=== PATIENT | male | born 1935 | race Caucasian/White ===

== ENCOUNTER 2017-12-09 07:02 | Day surgery (SDC) | payer MEDICARE, SELFPAY ==
[2017-12-08 14:11] VITALS: BMI 27.9
[2017-12-09 07:24] VITALS: BP 104/62; PULSE 66; RESP 18; TEMP 36.2; O2SAT 100
--- NOTE | 2017-12-09 08:13 | P.PN_ITS ---
[facility] Anesthesia Checklist - Patient Identification Patient Identification: Arm Band, Verbal (Name & ) - Structural Data Admitted From: Home Planned Operative Procedure/s: colonoscopy Consent for Planned Operative Procedure(s) Verified: Yes Verified Documents: Surgical Consent - NPO Status Verified Time NPO: 00:00 - Chart Verification Results Verified: CBC, BMP - Additional verifications Patient : No Anesthesia Reactions: No Hx Blood Transfusions: No Blood Transfusion Reaction: No Cephalosporin Allergy: No Previous Colonoscopy: Yes - Cardiovascular Assessment Pulse Strength: Baseline Pulse Rhythm: Irregular Peripheral Edema: No - Airway Assessment C-Spine Mobility Assessed: Yes TMJ Mobility Assessed: Yes Dentition: Good Dentition - Neurological Assessment Level of Consciousness: Awake, Alert, Appropriate Hx Seizures: No Numbness or tingling in extremities: No - Genitourinary Assessment 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 - Anesthesia Plan Anesthesia Risk discussed: Yes ASA Class: III Anesthesia Type: MAC [facility] Anesthesia HX I have reviewed the patient's past medical history: Yes Medical History: Reports:: Atrial Fibrillation, Coronary Artery Disease, Gastroesophageal Reflux Disease(GERD), Hyperlipidemia, Hypertension Denies:: Diabetes Mellitus Type 1, Diabetes Mellitus Type 2, Internal Pacemaker, Lung Disease, Seizures Other Medical History: Reports: Arthritis Laterality Cases: Bilateral: Other Other Surgeries: Yes: Colonoscopy, Colon Resection, Coronary Stent (STENTS X 3) . No: Pacemaker *Family Hx:: Heart Attack
[2017-12-09 08:17] VITALS: O2SAT 97
--- NOTE | 2017-12-09 08:54 | HMH.SCOPE ---
- Procedure: Date: 12/09/17 Procedure Performed:: Colonoscopy with polypectomies Indications:: Patient is an 81-year-old white male referred by Dr. Daniel Fagan. He is somewhat of a poor historian. He was referred for rectal polyp . Patient states that his been present for a while . He has had some minor painless rebleeding. He is on blood thinners. He was undergoing routine prostate examination and was noted to have a palpable lesion. Upon review of the record the patient did have colon resection for benign disease. Last colonoscopy was [address] Cheikh north?krissy and he recommended 5 year follow-up colonoscopy. On examination in the office it appears that this is likely a thrombosed internal hemorrhoid. However, due to his prior history and due to uncertainty plan was made for colonoscopy for confirmation and to rule out neoplasm. Performing Provider:: Dixon Umana MD Referring Provider:: Daniel Fagan MD Sedation:: Propofol Procedure:: Consent was obtained and patient was taken to same-day surgery endoscopy procedure room. He was positioned in a lateral position. Digital examination was performed which revealed right lateral palpable lesion consistent with probable thrombosed hemorrhoid. Variable stiffness Olympus colonoscope was inserted via the anus. Retroflexion was performed immediately which revealed what appeared to be prolapsing thrombosed hemorrhoid which is noninflamed. Colonoscope was able to be advanced to the cecum without significant difficulty. Colonoscope was withdrawn through the colon. He did have several diminutive tiny polyps counter. These were quite small and removed with cold biopsy forceps. He did have somewhat of a larger sessile lesion at the hepatic flexure region and this was partially amputated with cold snare and then removed in its entirety with cold biopsy forceps. Within the sigmoid colon he had some [place] diverticuli. Colonoscope was withdrawn. Findings:: Diverticulosis Internal hemorrhoids Diminutive polyp Recommendations:: I will plan to treat with steroid suppositories. Likely plan for repeat colonoscopy in 5 years. Complications:: None Estimated blood obtained (mL): 2
[2017-12-09 08:57] VITALS: BP 79/55; BP 92/53; PULSE 69; PULSE 75; RESP 16; RESP 18; TEMP 36.6; O2SAT 94; O2SAT 95
[2017-12-09 09:17] VITALS: BP 99/79; PULSE 71; RESP 18; O2SAT 94
[2017-12-09 09:27] VITALS: BP 108/74; PULSE 77; RESP 18; O2SAT 95
[2017-12-09 09:37] VITALS: BP 110/70; PULSE 69; RESP 18; O2SAT 95
== END 2017-12-09 09:37 | disposition home or self-care (01) ==
LOC: OUTP 07:04
PROVIDERS: PCP Family Medicine; Visit Provider Surgery
PROC: 0DJD8ZZ Inspection of Lower Intestinal Tract, Via Natural or Artificial Opening Endoscopic (ICD-10-PCS; principal; 2017-12-09 07:30)
DX: K64.8 Other hemorrhoids (principal); K57.30 Diverticulosis of large intestine without perforation or abscess without bleeding; K63.5 Polyp of colon; Z87.19 Personal history of other diseases of the digestive system
CPT/HCPCS: 45380; 45385; 88305

== ENCOUNTER → 2018-03-10 12:42 | Outpatient (CLI) | payer MEDICARE, SELFPAY ==
[2018-03-10 14:25] LABS: Free T4 (Free Thyroxine) 0.91 ng/dl (0.76-1.46); Thyroid Stimulating Hormone 2.76 uIU/ml (0.358-3.740)
== END ==
PROVIDERS: Visit Provider Otolaryngology
DX: E03.9 Hypothyroidism, unspecified (principal)
CPT/HCPCS: 36415; 84439; 84443

== ENCOUNTER → 2018-08-20 11:50 | Outpatient (REF) | payer MEDICARE, SELFPAY ==
[2018-08-20 13:15] LABS: Erythrocyte Sedimentation Rate 22 mm/hr (0-20)
[2018-08-20 13:51] LABS: C-Reactive Protein 0.8 mg/L (0.0-0.9)
[2018-08-22 11:52] LABS: Peripheral Smear Review Scanned Result
== END ==
LOC: LAB 11:50
PROVIDERS: Visit Provider Emergency Medicine
DX: D72.829 Elevated white blood cell count, unspecified (principal)
CPT/HCPCS: 85060; 85651; 86140

== ENCOUNTER → 2019-02-18 08:46 | Outpatient (CLI) | payer MEDICARE, SELFPAY ==
[2019-02-18 09:44] LABS: Basophils # 0.1 K/mm3 (0-0.2); Basophils % 0.8 % (0.1-2.0); Eosinophils # 0.2 K/mm3 (0.0-0.4); Hematocrit 43.3 % (42.0-52.0); Hemoglobin 14.4 g/dL (14.1-18.0); Lymphocytes # 11.9 K/mm3 (0.7-4.5); Mean Corpuscular HGB Conc 33.4 g/dL (31.8-35.4); Mean Corpuscular Hemoglobin 30.2 pg (27.0-31.2); Mean Corpuscular Volume 90.3 fl (80-94); Mean Platelet Volume 7.3 fl (7.4-10.4); Monocytes # 0.3 K/mm3 (0.1-1.0); Monocytes % 1.8 % (1.7-9.3); Neutrophils % 24.4 % (37.0-80.0); Platelet Count 229 K/mm3 (142-424); Red Blood Count 4.79 M/mm3 (4.60-6.20); Red Cell Distribution Width 14.6 % (11.5-17.5); White Blood Count 16.5 K/mm3 (4.8-10.8)
[2019-02-18 09:45] LABS: MANUAL DIFFERENTIAL MANUAL DIFFERENTIAL (MANUAL DIFF)
[2019-02-18 12:22] LABS: Eosinophils % 2 % (0-3); Lymphocytes % 75 % (10-50); Monocytes % 1 % (2-9); Neutrophils % 21 % (42-76); Platelet Estimate Normal; Total Cells Counted 100
[2019-02-18 12:27] LABS: Alanine Aminotransferase 27 U/L (12-78); Albumin Level 4.1 gm/dL (3.4-5.0); Albumin/Globulin Ratio 1.4 (1.1-1.8); Alkaline Phosphatase 96 U/L (46-116); Anion Gap 17.4 mEq/L (5-15); Aspartate Amino Transferase 15 U/L (15-37); Bilirubin,Total 0.6 mg/dL (0.2-1.0); Blood Urea Nitrogen 25 mg/dL (7-18); Calcium 9.1 mg/dL (8.5-10.1); Carbon Dioxide 25 mmol/L (21.0-32.0); Chloride 103 mmol/L (98-107); Estimated Glomerular Filt Rate 45 ml/min (>60); GFR (African American) 54 ML/MIN (>60); Glucose 150 mg/dL (74-106); Potassium 4.4 mmoL/L (3.5-5.1); Sodium 141 mmol/L (136-145); Total Protein,Serum 7.1 gm/dL (6.4-8.2)
== END ==
PROVIDERS: Visit Provider Internal Medicine Medical Oncology
DX: D64.9 Anemia, unspecified (principal)
CPT/HCPCS: 36415; 80053; 85007; 85025

== ENCOUNTER → 2020-06-06 10:49 | Outpatient (CLI) | payer MEDICARE, SELFPAY ==
--- NOTE | 2020-06-06 10:50 | CA_ITS ---
APPROVED REPORT EXAM: Comprehensive 2D, Doppler, and color-flow Echocardiogram Electronic Test Technician: Kiersten Palacios CRT Ht: 5 ft 10 in Wt: 196lbs BSA: 2.07 BP: 154/71 mmHg Indications: Chest Pain, Shortness of Breath, Atrial Fibrillation, CAD 2D Dimensions LVOT 2.07 cm (M/F) 1.5-2.5 M-Mode Dimensions RVDd 3.53 cm (0.9-2.6) LVDd 4.49 cm (3.5-5.7) LVDs 2.95 cm (3.5-5.7) IVSd 2.12 cm (0.6-1.1) PWd 1.21 cm (0.6-1.1) EF (Teich) 63.50% FS 34.30% EDV (Teich) 92.00 mL ESV (Teich) 33.60 mL LV Diastology E/A Ratio 3.24 Mitral Valve MV A Velocity 28.00 (40-130 cm/s) Left Ventricle Left atrium is moderately enlarged, left ventricle is normal size, mild concentric left ventricular hypertrophy, visually estimated ejection fraction 55% with no regional wall motion abnormality, diastolic parameters are inconclusive. Right Ventricle Right atrium and right ventricle mildly enlarged with normal contractility. Aortic Valve Aortic valve is minimally thickened and fibrosed, there is no aortic stenosis, there is mild aortic insufficiency. Mitral Valve Mitral valve leaflets are minimally thickened, there is no mitral stenosis, there is mild mitral regurgitation. Tricuspid Valve Tricuspid valve is minimally thickened, there is mild tricuspid regurgitation, tricuspid regurgitation jet velocity is inadequate for calculation of the right ventricular systolic pressure. Pulmonic Valve Pulmonic valve is poorly visualized. Great Vessels Aortic root is normal size. Pericardium No significant pericardial effusion noted. Conclusion 1. Biatrial enlargement, normal left ventricular size, mild concentric left ventricular hypertrophy, visually estimated ejection fraction 55% with no regional wall motion abnormality, diastolic parameters are inconclusive. 2. Thickened and calcified aortic valve without aortic stenosis, there is mild aortic insufficiency. 3. Mildly enlarged right ventricle with normal contractility. 4. Mild mitral and tricuspid regurgitation. 5. No significant pericardial effusion noted. Electronically signed by : Mikhail Gilbert, 06/06/2020 19:05:39
== END ==
PROVIDERS: PCP Family Medicine; Visit Provider Urology
DX: R06.00 Dyspnea, unspecified (principal)
CPT/HCPCS: 93306

== ENCOUNTER → 2021-06-04 07:53 | Outpatient (CLI) | payer MEDICARE, SELFPAY | PROVIDERS: Visit Provider Surgery | DX: Z01.812 Encounter for preprocedural laboratory examination (principal); Z20.822 Contact with and (suspected) exposure to COVID-19; Z13.810 Encounter for screening for upper gastrointestinal disorder; Z12.11 Encounter for screening for malignant neoplasm of colon | CPT/HCPCS: U0003 ==

== ENCOUNTER 2021-06-06 10:31 | Day surgery (SDC) | payer MEDICARE, SELFPAY ==
[2021-05-30 12:25] VITALS: BMI 27.8
--- NOTE | 2021-06-06 10:39 | HMH.SCOPE ---
- Procedure: Date: 06/06/21 Patient Date of :: 1935 Procedure Performed:: Esophagogastroduodenoscopy with biopsies Colonoscopy with biopsies Indications:: Patient is an 85-year-old male. He recently presented to the office with concerns about his bowels. His primary care provider is Dr. Daniel Fagan. Patient had a colon resection about 20 years ago for benign disease, diverticulitis. He had a colonoscopy by Dr. Cheikh Villanueva about 8 years ago and had a tubular adenoma removed. I had seen him and performed colonoscopy on 12/09/2017. He had 7 tubular adenomas. I recommended a 3-year follow-up colonoscopy. He now describes symptoms of loose stools and diarrhea. This is actually been present for quite some time but has been progressive. He often has nocturnal diarrhea and smaller caliber stools. He has postprandial diarrhea. He asked if there is a medication which could help him and he also asks about irritable bowel syndrome. He had asked about doing an upper endoscopy as well as colonoscopy since he had diarrhea occurring after eating. I had informed him that upper endoscopy would likely be low yield for this type of symptoms. The options were discussed with the patient and plan was made to proceed with colonoscopy. However, shortly thereafter, he had reported back to the office later asking about performance of upper endoscopy again. Plan was made to perform upper endoscopy and colonoscopy due to history of polyps and postprandial diarrhea with change in bowel habits. Performing Provider:: Dixon Umana MD Referring Provider:: Daniel Fagan MD Sedation:: MAC sedation Procedure:: Patient was taken to endoscopy procedure room. He was positioned in lateral decubitus position. Adequate intravenous sedation was achieved. Attention was first turned upper endoscopy. Olympus endoscope was inserted via the oropharynx. Esophagus was cannulated. It was advanced through the esophagus. Esophagus appeared normal. Gastroesophageal junction was encountered at approximately 40 cm from the incisors. Stomach was cannulated and insufflated. Visualization was somewhat difficult but appeared unremarkable. Pylorus was traversed. Duodenum appeared unremarkable. Biopsy was obtained. Gastric biopsy was obtained. Stomach was desufflated and the endoscope was withdrawn. Next attention was turned to colonoscopy. Digital examination was performed which revealed diminished sphincter tone. Variable stiffness Olympus colonoscope was inserted via the anus. With some minor difficulty due to significant redundancy and floppiness of the sigmoid colon it was ultimately advanced to the right colon. Throughout the colon there was some particulate liquid stool and vegetable matter. However, within the cecum there was a very large amount of undigested plant matter. Prolonged irrigation and suctioning was performed however adequate visualization of the cecum was not able to be achieved. Colonoscope was slowly withdrawn through the colon. Several biopsies were obtained differentiating right and left colon. These were sent as random colon biopsies. In the sigmoid colon there were multiple large mouth diverticuli. The distal sigmoid at the rectosigmoid region there appeared to be some minor melanosis coli. Biopsies were obtained. Retroflexion within the rectum revealed prolapsing internal hemorrhoids. Colonoscope was withdrawn. Findings:: Limited upper endoscopy appeared unremarkable. Biopsies gastric and duodenum performed Poor colonic preparation, particularly right colon with large amount of undigested plant matter Sigmoid diverticulosis Possible rectosigmoid melanosis coli Prolapsing internal hemorrhoids Recommendations:: Follow-up on the biopsies and treat appropriately. Bowel issues may be dietary/functional/medical. Due to the incomplete assessment of the colon may consider repeat colonoscopy within 1 year with more aggressive bow
[2021-06-06 10:48] VITALS: BP 172/110; PULSE 66; RESP 18; TEMP 36.5; O2SAT 97
[2021-06-06 11:08] VITALS: O2SAT 100
--- NOTE | 2021-06-06 11:16 | HMH.ANESCL ---
[facility] Anesthesia Checklist - Patient Identification Patient Identification: Arm Band - Structural Data Admitted From: Home Planned Operative Procedure/s: egd/colonoscopy Consent for Planned Operative Procedure(s) Verified: Yes Verified Documents: Surgical Consent, History and Physical - NPO Status Verified Time NPO: 00:00 - Additional verifications Anesthesia Reactions: No Hx Blood Transfusions: No Blood Transfusion Reaction: No - Airway Assessment C-Spine Mobility Assessed: Yes (mp2) TMJ Mobility Assessed: Yes Dentition: Good Dentition - Neurological Assessment Level of Consciousness: Awake, Alert - Anesthesia Plan Anesthesia Risk discussed: Yes Anesthesia Plan: Verified ASA Class: III Anesthesia Type: MAC [facility] History I have reviewed the patient's past medical history: Yes Medical History: Reports:: Atrial Fibrillation, Cancer (skin), Coronary Artery Disease, Gastroesophageal Reflux Disease(GERD), Hyperlipidemia, Hypertension Denies:: Diabetes Mellitus Type 1, Diabetes Mellitus Type 2, Internal Pacemaker, Lung Disease, MRSA, Seizures *Have you ever received a pneumonia vaccine?: Yes *Have you received a flu vaccine this season?: Yes Other Medical History: Reports: Arthritis, Hypothyroidism. Denies: Blood Transfusion Reaction Anesthesia experience/problems:: nac Laterality Cases: Bilateral: Other Other Surgeries: Yes: Colonoscopy, Colon Resection, Coronary Stent (STENTS X 3), Other (LHC, Cholecystectomy, Sx repair of stomach). No: Pacemaker Amputation: No Fractures: No - *Social History Last grade of school completed: Advanced degree Smoking Status: Never smoker Alcohol Intake: current Alcohol Intake Frequency:: a few times a month Substance Use Type: denies use *Occupational Status:: retired Housing: house Household Members: spouse *Travel in the last 8 weeks: None Family Hx:: Heart Attack
[2021-06-06 12:00] VITALS: BP 80/42; PULSE 51; RESP 18; TEMP 36.1; O2SAT 95
[2021-06-06 12:11] VITALS: BP 90/54; PULSE 58; RESP 18; O2SAT 94
[2021-06-06 12:21] VITALS: BP 109/53; PULSE 41; RESP 18; O2SAT 97
[2021-06-06 12:31] VITALS: BP 116/71; PULSE 48; RESP 18; O2SAT 100
== END 2021-06-06 12:34 | disposition home or self-care (01) ==
LOC: OUTP 10:32
PROVIDERS: PCP Family Medicine; Visit Provider Surgery
PROC: 0DJ08ZZ Inspection of Upper Intestinal Tract, Via Natural or Artificial Opening Endoscopic (ICD-10-PCS; CPT 43235; principal; 2021-06-06 11:30)
DX: K57.30 Diverticulosis of large intestine without perforation or abscess without bleeding; K64.1 Second degree hemorrhoids; K56.2 Volvulus; K63.89 Other specified diseases of intestine; Z90.49 Acquired absence of other specified parts of digestive tract; Z86.010 Personal history of colon polyps; R19.7 Diarrhea, unspecified; R19.4 Change in bowel habit; R19.5 Other fecal abnormalities; K21.9 Gastro-esophageal reflux disease without esophagitis; E78.5 Hyperlipidemia, unspecified; I10 Essential (primary) hypertension
CPT/HCPCS: 43239; 45380; 88305

== ENCOUNTER → 2022-05-08 06:12 | Outpatient (CLI) | payer MEDICARE, SELFPAY ==
--- NOTE | 2022-05-08 06:15 | CA_ITS ---
APPROVED REPORT Exam: Pharmacologic Technologist: Lisa Otoole, Ht: 5 ft 10 in Wt: 187 lbs BSA: 2.03 m2 HR: 47 bpm BP: 174/74 mmHg Rhythm: AFIB, SLOW V RESPONSE, PVCS VSABERRANTLY CONDUCTED BEATS, RIGHTWARD AXIS Indications: CP Medical History Medical History: HTN, Hyperlipidemia Medications: Amlodipine,,,,, Pantoprazole,,,,, Atorvastatin,,,,, TAMSULOSIN,,,,, Finasteride,,,,, BisOPROLOL/HCTZ,,,,, RIvaROXABAN,,,,, Allergies: SULFA Cardiac Risk Factors: HTN, Hyperlipidemia Stress Test Details Test: LEXISCAN HR Resting HR: 50 bpm Max Heart Rate (APMHR): 133.418143 bpm Max HR Achieved: 76 bpm Target HR (85% APMHR): 113.971012 bpm % of APMHR: 57.14 Recovery HR: 67 bpm BP Resting BP: 174/74 mmHg Max BP: 174/74 mmHg Recovery BP: 165.0/70.0 mmHg ECG Resting ECG: AFIB, SLOW V RESPONSE, PVCS VSABERRANTLY CONDUCTED BEATS, RIGHTWARD AXIS Clinical Exercise duration: 04:01 min Highest Stage Achieved: Exercise capacity: 1.0 METs Stress ECG Conclusion PT HAD MILD MALAISE. NO CP. MODERATELY FREQ PVCS VS ABERRANTLY CONDUCTED BEATS. NO SIGNIFICANT CHANGES. UNREMARKABLE LEXISCAN STRESS. MYOVIEW IMAGES REPORTED SEPARATELY. Test Summary . . . . . Stop exercise at 04:01 . . . . Electronically signed by : Mikhail Gilbert MD 05/08/2022 14:31:36
--- NOTE | 2022-05-08 06:15 | NM_ITS ---
APPROVED REPORT Exam: Nuclear Stress Test Indication: Chest pain, CAD, HTN, High cholesterol, Family history Patient Location: Outpatient Stress Tech: Lisa Otoole [place] Tech:Elsa Schmidt, ARRT, RT (R)(N) Ht: 5 ft 10 in Wt: 190 lbs HR: 50 bpm BP: 174/74 mmHg BSA: 2.04 m2 TID: 1.13 BMI: 27.2 History: Chest pain, CAD, HTN, High cholesterol, Family history Procedure: Patient received a 0.4 mg of intravenous Lexiscan, resting heart rate 50 bpm, resting blood pressure 174/74 mmHg, with Lexiscan maximum heart rate achived was 76 bpm which is Less than 85 % of the maximum predicted heart rate and blood pressure was 174/74 mmHg. With Lexiscan, patient denied any complaint of chest pain. Electrocardiogram Electrocardiogram showed atrial fibrillation, with Lexiscan less than 1.[address] segment depression noted from the baseline EKG. The EKG portion of the Lexiscan is nondiagnostic. Cardiac Stress and Resting SPECT Images: Cardiac Stress and Resting SPECT images were obtained using technetium 99m Myoview 31.2 mCi stress and 10.82 mCi at rest. Gated SPECT analysis of segmental wall motion and calculation of the ejection fraction also done. Cardiac stress and rest SPECT images show uniform myocardial activity without segmental perfusion abnormality, computer derived ejection fraction is 57% with no regional wall motion abnormality, right ventricle is normal size and contractility. Conclusion: 1. The EKG portion of the Lexiscan is nondiagnostic. 2. No scintigraphic evidence of reversible ischemia seen, computer derived ejection fraction is 57% with no regional wall motion abnormality, right ventricle is normal size and contractility. 3. Normal Lexiscan Myoview study. Electronically signed by : Mikhail Gilbert MD 05/08/2022 14:34:14
--- NOTE | 2022-05-08 08:25 | HMH.ITSHM ---
Current Home Medications as stated by this patient Jeromy Quintero or marketing development representative. []TAMSULOSIN RIVAROXABAN PANTOPRAZOLE FINASTERIDE BISOPROLOL AMLODIPINE ATORVASTATIN
== END ==
PROVIDERS: PCP Family Medicine; Visit Provider Internal Medicine Cardiovascular Disease
DX: E78.2 Mixed hyperlipidemia (principal); I11.9 Hypertensive heart disease without heart failure; I48.0 Paroxysmal atrial fibrillation; Z95.5 Presence of coronary angioplasty implant and graft; I20.8 Other forms of angina pectoris
CPT/HCPCS: 78452; 93017; A9502; J2785

== ENCOUNTER → 2023-06-27 07:24 | Outpatient (CLI) | payer MEDICARE, SELFPAY ==
--- NOTE | 2023-06-27 07:42 | NM_ITS ---
APPROVED REPORT Exam: Nuclear Stress Test Indication: chest pain..hypertension Patient Location: Outpatient Stress Tech: aRdha Jessica [place] Tech:AGUILAR Gibson RT(R)(N) Ht: 5 ft 10 in Wt: 220 lbs HR: 54 bpm BP: 137/67 mmHg BSA: 2.17 m2 Rhythm: Atrial Fibrillation TID: 1.09 BMI: 31.5 History: chest pain..hypertension Procedure: Patient received 0.4 mg of intravenous Lexiscan, resting heart rate 54 bpm, resting blood pressure 137/67 mmHg, with Lexiscan maximum heart rate achieved was 78 bpm which is 85 % of the maximum predicted heart rate and blood pressure was 137/67 mmHg. With Lexiscan, patient denied any complaint of chest pain. The pt was not able to lie on his abdomen for prone images Cardiac Stress and Resting SPECT Images: Cardiac Stress and Resting SPECT images were obtained using technetium 99m Myoview 31.6 mCi stress and 10.91 mCi at rest. The patient could not lie on his abdomen. Therefore, prone stress imaging could not be performed. Also, there is significant GI radiotracer uptake in close proximity to the inferior border of the cardiac wall in both resting and stress imaging. This may affect the diagnostic interpretation of the study findings. Resting and stress imaging in supine position demonstrate a medium sized, moderate, fixed perfusion defect in the basal to mid inferior and inferolateral LV richard. Gated imaging demonstrates low-normal global LV systolic function. There is mild hypokinesis in the basal inferior LV wall. LVEF is calculated at 51%. Of note, LVEF calculation may be inaccurate in this study in the setting of atrial fibrillation and frequent PVCs. Conclusion: The patient could not lie on his abdomen. Therefore, prone stress imaging could not be performed. Also, there is significant GI radiotracer uptake in close proximity to the inferior border of the cardiac wall in both resting and stress imaging. This may affect the diagnostic interpretation of the study findings. Resting and stress imaging in supine position demonstrate a medium sized, moderate, fixed perfusion defect in the basal to mid inferior and inferolateral LV richard. Gated imaging demonstrates low-normal global LV systolic function. There is mild hypokinesis in the basal inferior LV wall. LVEF is calculated at 51%. Of note, LVEF calculation may be inaccurate in this study in the setting of atrial fibrillation and frequent PVCs. Electronically signed by : Alisa Reis, 06/29/2023 20:12:16
--- NOTE | 2023-06-27 07:53 | CA_ITS ---
APPROVED REPORT EXAM: Comprehensive 2D, Doppler, and color-flow Echocardiogram Manager Property: Kiersten Palacios CRT Ht: 5 ft 10 in Wt: 190lbs BSA: 2.04 BP: 147/68 mmHg Indications: Chest Pain, Shortness of Breath, Atrial Fibrillation, CAD, Hyperlipidemia, Hypertension/HDD 2D Dimensions Aortic Root 1.85 cm M: 3.1 - 3.7 LA Volume 127.30 mL LA Volume Index 62.40 mL/m2 (M/F) 16-34 M-Mode Dimensions RVDd 3.21 cm (0.9-2.6) LA Diam 6.06 cm (1.9-4.0) LVDd 4.86 cm (3.5-5.7) Ao Diam 3.34 cm (2.0-3.7) LVDs 2.79 cm (3.5-5.7) IVSd 1.68 cm (0.6-1.1) PWd 1.29 cm (0.6-1.1) EF (Teich) 73.50% FS 42.60% EDV (Teich) 110.70 mL TAPSE 1.93 (<1.7) ESV (Teich) 29.30 mL LV Diastology E Decel Time 150.00 (160-240 msec) E/A Ratio 2.8 MED E' 10.30 (< 7 cm/sec) MED A' 13.30 cm/s E'/MED E' Ratio 8.52 (>14) LAT E' 10.20 (<10 cm/sec) LAT A' 16.80 cm/s E/LAT E' Ratio 8.61 (>14) Aortic Valve AO Peak GR. 8.50 mmHg Mitral Valve MV E Max James. 88.00 (40-130 cm/s) MV A Velocity 32.00 (40-130 cm/s) E/A Ratio 2.78 MV Decel. Time 150.00 (160-240 ms) MV PHT 44.00 ms Pulmonary Valve PV Peak Velocity 157.00 (50-150 cm/s) Tricuspid Valve TR P. Velocity 289.00 cm/s RAP Estimate 10.00 mmHg RVSP 43.30 mmHg Left Ventricle The left ventricle is normal size. The left ventricular systolic function is normal. The left ventricular ejection fraction is within the normal range. There is proximal septal thickening present. There is normal LV segmental wall motion. The diastolic function is indeterminate due to atrial fibrillation. LVEF is 60%. Right Ventricle The right ventricle is normal size. The right ventricular systolic function is normal. Atria Left atrium is severely dilated. Right atrium is moderately dilated. There is no Doppler evidence of interatrial shunt. Aortic Valve The aortic valve leaflets are moderately thickened. There is no hemodynamically significant aortic stenosis. Trace aortic regurgitation. Mitral Valve The mitral valve is mildly thickened. There is mild prolapse of the posterior mitral valve leaflet. No evidence of mitral valve stenosis. Mild mitral regurgitation. Tricuspid Valve The tricuspid valve leaflets are thin and pliable. Mild tricuspid regurgitation. RVSP is 35-40 mmHg. Pulmonic Valve The pulmonary valve is normal in structure. Trace pulmonic regurgitation. Great Vessels The aortic root is normal in size. The ascending aorta is normal in size. IVC is normal in size and collapses >50% with inspiration. Pericardium There is no pericardial effusion. Other Information Study Quality: Adequate Conclusion Normal biventricular systolic function. The diastolic function is indeterminate due to atrial fibrillation. Biatrial dilation. Mild posterior MV prolapse. Mild MR. Moderately thickened AV leaflets. No . Elevated RVSP 35-40 mmHg. When visually compared to prior study from 2019, there are overall no significant changes. Electronically signed by : Alisa Reis, 06/28/2023 16:40:12
--- NOTE | 2023-06-27 09:51 | CA_ITS ---
APPROVED REPORT Exam: Pharmacologic Technologist: Radha Sánchez, Ht: 5 ft 10 in Wt: 190 lbs BSA: 2.04 m2 HR: 60 bpm BP: 137/67 mmHg Rhythm: Atrial fibrillation Medical History Medications: Amlodipine,,,,, Losartan,,,,, Pantoprazole,,,,, TAMSULOSIN,,,,, Finasteride,,,,, RoSUVASTATIN,,,,, RIvaROXABAN,,,,, BisOPROLOL-HCTZ,,,,, Stress Test Details Test: LEXISCAN Reason for pharmacologic stress test: physical limitation. HR Resting HR: 54 bpm Max Heart Rate (APMHR): 132 bpm Max HR Achieved: 78 bpm Target HR (85% APMHR): 112 bpm % of APMHR: 59 Recovery HR: 64 bpm BP Resting BP: 137.0/67.0 mmHg Max BP: 137.0/67.0 mmHg Recovery BP: 133.0/64.0 mmHg ECG Resting ECG: Atrial fibrillation, frequent PVCs, rightward axis. Stress ECG: No change Arrhythmia: Frequent PVCs, 1 ventricular couplet, 1 ventricular triplet Clinical Exercise duration: 04:00 min Highest Stage Achieved: Stress ECG Conclusion Symptoms: Mild SOA. No CP. Arrhythmias/Ectopy: Transiently bradycardic after injection. Frequent PVCs, one couplet, one triplet. ST-T Changes: No significant ST changes. Conclusion: Patient was noted to be in atrial fibrillation and have frequent PVCs at baseline. Unremarkable Lexiscan ECG stress test. Myoview images reported separately. Test Summary REST 04:58 . . 54 . 137/ 67 . . Stage 1 01:00 . . 63 . . . . Stage 2 01:00 . . 69 . . . . Stage 3 01:00 . . 69 . 120/ 53 . . Stage 4 01:00 . . 75 . . . Stop exercise at 04:00 RECOVERY 01:00 . . 57 . 119/ 57 . . RECOVERY 02:00 . . 68 . 137/ 56 . . RECOVERY 03:00 . . 58 . 137/ 56 . . RECOVERY 03:45 . . 63 . 133/ 64 . . Electronically signed by : Alisa Ries, 06/29/2023 20:06:29
== END ==
PROVIDERS: PCP Family Medicine; Visit Provider Physician Assistant
DX: E78.5 Hyperlipidemia, unspecified (principal); I11.9 Hypertensive heart disease without heart failure; I25.10 Atherosclerotic heart disease of native coronary artery without angina pectoris; I48.91 Unspecified atrial fibrillation; R07.89 Other chest pain; Z95.5 Presence of coronary angioplasty implant and graft; I48.0 Paroxysmal atrial fibrillation; R06.00 Dyspnea, unspecified
CPT/HCPCS: 78452; 93017; 93306; A9502; J2785

== ENCOUNTER 2023-12-15 11:48 | Outpatient (CLI) | payer MEDICARE, SELFPAY ==
--- NOTE | 2023-12-15 12:00 | ECG_ITS ---
APPROVED REPORT Exam: Resting ECG HR:90 bpm ECG Measurements Heart Rate 90 AXES QRSd 96 QRS 113 QT 363 T 6 QTc 411 Conclusion Atrial fibrillation with multiple PVCs in a bigeminy pattern Nonspecific ST-T wave changes Right axis deviation ABNORMAL ECG UNCONFIRMED REPORT Electronically signed by : Isidro Tiwari MD 12/15/2023 17:15:33
== END 2023-12-15 23:59 ==
LOC: RT 11:49
PROVIDERS: PCP Family Medicine; Visit Provider Family Medicine
DX: I48.91 Unspecified atrial fibrillation (principal)
CPT/HCPCS: 93005

== ENCOUNTER 2024-01-05 15:14 | Outpatient (CLI) | payer MEDICARE, SELFPAY ==
[2024-01-05 16:34] LABS: Chloride 105 mmol/L (98-107); Sodium 136 mmol/L (136-145)
[2024-01-05 16:35] LABS: Potassium 4.5 mmoL/L (3.5-5.1)
[2024-01-05 16:37] LABS: Alanine Aminotransferase 20 U/L (12-78); Albumin Level 4.2 g/dl (3.5-5.0); Alkaline Phosphatase 75 U/L (38-126); Anion Gap 7.5 mEq/L (5-15); Aspartate Amino Transferase 20 U/L (17-59); Bilirubin,Direct 0.1 mg/dl (0.0-0.4); Bilirubin,Indirect 0.6 mg/dL (0.0-0.9); Bilirubin,Total 0.7 mg/dl (0.2-1.3); Bilirubin,Unconjugated 0.6 mg/dL (0.0-1.1); Blood Urea Nitrogen 23 mg/dl (9-20); Calcium 8.9 mg/dl (8.4-10.2); Carbon Dioxide 28 mmol/L (22.0-30.0); Cholesterol 118 mg/dl (140-200); Estimated Glomerular Filt Rate 41 ml/min (>60); GFR (African American) 49 ML/MIN (>60); Glucose 206 mg/dl (74-100); Total Protein,Serum 6.3 g/dl (6.3-8.2); Triglycerides 239 mg/dl (30-150); VLDL Cholesterol 48 mg/dL (0-40)
[2024-01-05 16:38] LABS: Chol/HDL Ratio 4.9 (1-3.5); HDL Cholesterol 24 mg/dl (40-60)
[2024-01-05 16:49] LABS: Direct LDL Cholesterol 62.23 mg/dL (100-129)
== END 2024-01-05 23:59 ==
LOC: LAB 15:15
PROVIDERS: PCP Family Medicine; Visit Provider Internal Medicine
DX: E78.5 Hyperlipidemia, unspecified (principal); I11.9 Hypertensive heart disease without heart failure; I25.10 Atherosclerotic heart disease of native coronary artery without angina pectoris; I48.91 Unspecified atrial fibrillation; R07.89 Other chest pain; Z95.5 Presence of coronary angioplasty implant and graft
CPT/HCPCS: 36415; 80048; 80061; 80076

== ENCOUNTER 2024-04-16 07:36 | Outpatient (CLI) | payer MEDICARE, SELFPAY ==
[2024-04-16 07:40] LABS: Adenovirus F 40/41, stool Not Detected (NotDetected); Astrovirus Not Detected (NotDetected); Campylobacter Not Detected (NotDetected); Clostridium Difficile A/B, PCR Not Detected (NotDetected); Cryptosporidium Not Detected (NotDetected); Cyclospora Cayetanesis Not Detected (NotDetected); Entamoeba histolytica Not Detected (NotDetected); Enteroaggregative E coli Not Detected (NotDetected); Enteropathogenic E coli Not Detected (NotDetected); Enterotoxigenic E coli Not Detected (NotDetected); Giardia lamblia Not Detected (NotDetected); Norovirus Not Detected (NotDetected); Plesimonas Shigalloides, PCR Not Detected (NotDetected); Rotavirus A Not Detected (NotDetected); Salmonella, PCR Not Detected (NotDetected); Sapovirus Not Detected (NotDetected); Shiga-like toxin E coli Not Detected (NotDetected); Shigella Enterovasive E coli Not Detected (NotDetected); Vibrio Cholerae Not Detected (NotDetected); Vibrio, PCR Not Detected (NotDetected); Yersinia Entercolitica, PCR Not Detected (NotDetected)
== END 2024-04-16 23:59 | disposition home or self-care (01) ==
LOC: LAB.DROPOF 07:36
PROVIDERS: PCP Family Medicine; Visit Provider Surgery
DX: R19.7 Diarrhea, unspecified (principal)
CPT/HCPCS: 87506

== ENCOUNTER 2024-08-06 11:09 | Day surgery (SDC) | payer MEDICARE, SELFPAY ==
[2024-08-05 12:50] VITALS: BMI 27.2
--- NOTE | 2024-08-05 12:55 | SUR.PREOP ---
Pre-op note: Pt has A-Fib and was seen by Dr. Reis in late June. Notified Renay in cardiology and said will notify a provider to write us a clearance letter. Pt said that he was not instructed by anyone to stop his Xarelto but he did it himself on 08-02-24, updated Renay on this as well.
--- NOTE | 2024-08-06 11:31 | P.HP_ITS ---
HPI HPI HPI: Patient presents for colonoscopy. I had seen him a couple of months ago as a self-referral for GI issues. His primary care provider is Dr. Daniel Fagan. Patient apparently had a sigmoid colon resection in 1994 apparently for diverticulitis. He had the following endoscopic procedures in the past: * 10/08/2000, EGD with Dr. Zamora * 06/18/2010, EGD and colonoscopy with Dr. Villanueva * 02/01/[address] Villanueva for follow-up for possible Hanley's * 07/19/2013 EGD and colonoscopy with Dr. Villanueva at which time he had a cecal polyp (tubular adenoma). * 12/09/2017 colonoscopy with me at which time he had 7 tubular adenomas * EGD and colonoscopy with me on 06/06/2021 which revealed some mild reactive gastropathy. Colonoscopy revealed poor colonic preparation with undigested plant matter and vegetable matter and stool in the right colon. There was some diverticulosis. Random biopsies were benign. After my colonoscopy in 2020 I had advocated possible follow-up repeat colonoscopy due to suboptimal preparation with the patient wished to not undergo this. I therefore recommended contrast enema and Cologuard testing to rule out adenomatous change. He did not undergo these. It was felt that his symptoms are likely dietary/functional. Patient recently to the office essentially with ongoing similar symptoms as before. He describes loose stools. He describes diarrhea after eating too much. 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 It seemed as though he was interested in something medical treatment and not in any procedure or diagnostic testing. I had him undergo stool testing which was negative for infectious etiology. He was unable to undergo Cologuard testing. I informed him that empirically treati ng his symptoms without known cause would be undesired. Plan was made to proceed with colonoscopy. He had been scheduled but then canceled and then rescheduled. He contacted the office the day before the procedure and asked about having an upper endoscopy. He does have symptoms of dyspepsia. . [facility] Disclaimer: The information contained in this section may have been updated after the patient was seen, as this information can be updated by other users. Medical History Coronary artery disease Dyspnea Surgical History History of colon resection Stented coronary artery History of colonoscopy Family History Other Family history of myocardial infarction Social History Smoking Status: Never smoker alcohol intake: current alcohol intake frequency: a few times a month counseling provided: provider counseling substance use type: denies use current occupational status: retired Travel in the last 8 weeks: None household members: spouse housing: house current occupational exposures/hazards: No caffeine: Yes Meds Home Medications and Allergies Home Medications ?Medication ?Instructions ?Recorded ?Confirmed ?Type finasteride 5 mg tablet 5 mg PO QDAY prostate 12/01/17 08/06/24 History rivaroxaban 15 mg tablet (Xarelto) 15 mg PO DAILY Blood thinner #90 08/04/18 08/06/24 Rx tabs tamsulosin 0.4 mg capsule 0.4 mg PO DAILY prostate 06/01/21 08/06/24 History losartan 100 mg tablet 100 mg PO DAILY 05/26/23 08/06/24 History atorvastatin 10 mg tablet 10 mg PO DAILY 07/02/23 08/06/24 History bisoprolol 10 1 tab PO DAILY #90 tabs 12/22/23 08/06/24 Rx mg-hydrochlorothiazide 6.25 mg tablet amlodipine 10 mg tablet (Norvasc) 10 mg PO DAILY #90 tabs 07/05/24 08/06/24 Rx New Prescriptions to Start Prescriptions: Allergies Allergy/AdvReac Type Severity Reaction Status Date / Time Sulfa (Sulfonamide Allergy Intermediate I-RASH Verified 08/06/24 11:38 Antibiotics) Exam Data for Last 24 hours I & O for Last 24 hours: Intake & Output 08/03/24 08/04/24 08/05/24 08/06/24 11:59 11:59 11:59 11:59 Weight 190 lb *Routine HEENT Exam Head: Present normocephalic Eye: Present EOMI ENT: Present mucous membranes moist *Routine Respiratory Exam Respiratory: Present CTA bilaterally *Routine Cardiovascular Exam Cardiovascular: Present RRR *Routine Abdominal Exam Abdominal: Present soft *Routine Rectal Exam Rectal:: deferred *Routine Genitalia Exam Genitalia:: deferred Assessment and Plan *Assessment and plan (1) Diarrhea: Status: Acute Category: Medical Code(s): R19.7 - Diarrhea, unspecified Plan Plan is to proceed with colonoscopy.
[2024-08-06 11:42] VITALS: BP 153/58; PULSE 60; RESP 18; TEMP 36.2; O2SAT 97
--- NOTE | 2024-08-06 11:52 | P.PNANES_ITS ---
[facility] Disclaimer: The information contained in this section may have been updated after the patient was seen, as this information can be updated by other users. Medical History Coronary artery disease Dyspnea Surgical History History of colon resection Stented coronary artery History of colonoscopy Family History Other Family history of myocardial infarction Social History Smoking Status: Never smoker alcohol intake: current alcohol intake frequency: a few times a month counseling provided: provider counseling substance use type: denies use current occupational status: retired Travel in the last 8 weeks: None household members: spouse housing: house current occupational exposures/hazards: No caffeine: No [facility] Anesthesia Checklist Patient Identification Patient Identification: Arm Band Structural Data Admitted From: Home Planned Operative Procedure/s: EGD/Colonoscopy Consent for Planned Operative Procedure(s) Verified: Yes Verified Documents: Surgical Consent and History and Physical NPO Status Verified Time NPO: 00:00 Additional verifications Anesthesia Reactions: No Hx Blood Transfusions: No Blood Transfusion Reaction: No Airway Assessment Mallampati Score:: Class II C-Spine Mobility Assessed: Yes TMJ Mobility Assessed: Yes Dentition: Good Dentition Neurological Assessment Level of Consciousness: Awake, Alert and Appropriate Anesthesia Plan Anesthesia Risk discussed: Yes Anesthesia Plan: Verified ASA Class: III Anesthesia Type: MAC
[2024-08-06] MEDS: LACTATED RINGERS 1000ML 1,000 ML 100 ML IV (11:53)
[2024-08-06 13:00] VITALS: BP 89/39; PULSE 45; RESP 16; O2SAT 96
--- NOTE | 2024-08-06 13:00 | P.PCN_ITS ---
Procedure: Date: 08/06/24 Patient Date of :: 1935 Procedure Performed:: Esophagogastroduodenoscopy with biopsies Total colonoscopy to terminal ileum with polypectomy and biopsies Indications:: Patient presents for colonoscopy as well as EGD. I had seen him a couple of months ago as a self-referral for GI issues. His primary care provider is Dr. Daniel Fagan. Patient apparently had a sigmoid colon resection in 1994 apparently for diverticulitis. He had the following endoscopic procedures in the past: * 10/08/2000, EGD with Dr. Zamora * 06/18/2010, EGD and colonoscopy with Dr. Villanueva * 02/01/[address] Villanueva for follow-up for possible Hanley's * 07/19/2013 EGD and colonoscopy with Dr. Villanueva at which time he had a cecal polyp (tubular adenoma). * 12/09/2017 colonoscopy with me at which time he had 7 tubular adenomas * EGD and colonoscopy with me on 06/06/2021 which revealed some mild reactive gastropathy. Colonoscopy revealed poor colonic preparation with undigested plant matter and vegetable matter and stool in the right colon. There was some diverticulosis. Random biopsies were benign. After my colonoscopy in 2020 I had advocated possible follow-up repeat colonoscopy due to suboptimal preparation with the patient wished to not undergo this. I therefore recommended contrast enema and Cologuard testing to rule out adenomatous change. He did not undergo these. It was felt that his symptoms are likely dietary/functional. Patient recently to the office essentially with ongoing similar symptoms as before. He describes loose stools. He describes diarrhea after eating too much. 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 It seemed as though he was interested in something medical treatment and not in any procedure or diagnostic testing. I had him undergo stool testing which was negative for infectious etiology. He was unable to undergo Cologuard testing. I informed him that empirically treating his symptoms without known cause would be undesired. Plan was made to proceed with colonoscopy. He had been scheduled but then canceled and then rescheduled. He contacted the office the day before the procedure and asked about having an upper endoscopy. He does have symptoms of dyspepsia. . Performing Provider:: Dixon Umana MD Referring Provider:: Daniel Fagan MD Sedation:: MAC sedation Procedure:: Patient history was obtained and appropriate physical examination was performed. Patient's medications and allergies were reviewed. Informed consent was obtained after explaining the benefits, alternatives, and risks of the procedure including, but not limited to, bleeding, perforation, missed lesions, and adverse reaction to anesthesia medications. Patient was transported to endoscopy procedure room. Patient was connected to monitoring devices. Throughout the procedure the patient's blood pressure, pulse, and oxygen saturations were monitored continuously. Patient identification and planned procedure were verified by the staff. Patient was positioned in lateral decubitus position. Attention was first turned to upper endoscopy. Olympus endoscope was inserted via the oropharynx. Esophagus was cannulated. Endoscope was advanced. There were findings consistent with mild to moderate esophageal dysmotility. Gastroesophageal junction was encountered. Stomach was cannulated and insufflated. Retroflexion revealed a moderate sliding hiatal hernia measuring about 4 to 5 cm. There was diffuse moderate gastropathy/gastritis characterized by edema and induration with erythema. There were a few areas of punctate heme material. Most significant areas of induration appear to be in the mid body. There was a gastric fundic gland polyp. Pylorus was traversed. Duodenum appeared normal. Endoscope was withdrawn into the stomach and gastric biopsies were obtained. Biopsy was used to remove the gastric polyp. Endoscope was withdrawn. Next attention was turned to colonoscopy. Digital anorectal exam was performed. Variable stiffness Olympus colonoscope was inserted and advanced under direct visualization to the cecum. Advancement of the colonoscope required abdominal pressure due to redundancy and floppiness of the colon. Adequacy of the colonic preparation was noted. The colonoscope was advanced a short distance into the terminal ileum. There was undigested vegetable matter and absorbed medications mostly in the right colon. High-volume trans colonoscopic irrigation and suctioning was performed which allowed for decent visualization. Due to his symptoms multiple biopsies were obtained of the right colon using cold biopsy forceps. There was a proximal transverse colon polyp removed with snare. Just distal to this there was a small polyp removed with snare. The colonoscope was then slowly withdrawn while carefully examining the color, texture, anatomy, and integrity of the mucosoa circumferentially. There was left-sided diverticulosis. Random left biopsies were obtained. Within the rectum retroflexion was performed. Colonoscope was then withdrawn. . Findings:: Esophageal dysmotility 4 to 5 cm sliding hiatal hernia Moderate nonerosive gastropathy Fundic gland polyp Fair colonic preparation Proximal transverse and mid transverse polyps as noted Sigmoid diverticulosis . Recommendations:: Plan to follow-up on histopathology. Some degree of his symptoms may be functional/medical. Could require gastroenterology evaluation. Complications:: None immediately apparent Estimated blood obtained (mL): 2 Colonoscopy Component Colonoscopy Component Was a colonoscopy performed during today's procedure?: Yes Recommended follow up colonoscopy of at least 10 years?: Yes
[2024-08-06 13:10] VITALS: BP 106/43; PULSE 49; RESP 16; O2SAT 97
[2024-08-06 13:20] VITALS: BP 107/73; PULSE 50; RESP 18; O2SAT 97
[2024-08-06 13:30] VITALS: BP 126/80; PULSE 50; RESP 16; O2SAT 97
== END 2024-08-06 13:34 | disposition home or self-care (01) ==
PROVIDERS: PCP Family Medicine; Visit Provider Surgery
PROC: 0DJ08ZZ Inspection of Upper Intestinal Tract, Via Natural or Artificial Opening Endoscopic (ICD-10-PCS; CPT 43235; principal; 2024-08-06 12:30)
DX: R19.7 Diarrhea, unspecified (principal); Z86.010 Personal history of colon polyps; K57.30 Diverticulosis of large intestine without perforation or abscess without bleeding; K22.4 Dyskinesia of esophagus; K44.9 Diaphragmatic hernia without obstruction or gangrene; K31.9 Disease of stomach and duodenum, unspecified; K31.7 Polyp of stomach and duodenum; K63.5 Polyp of colon
CPT/HCPCS: 43239; 45380; 45385; J7120

== ENCOUNTER 2024-09-22 11:57 | Outpatient (CLI) | payer MEDICARE, SELFPAY ==
[2024-09-22 12:04] LABS: Microscopic, Urine URINE MICROSCOPIC (MICROSCOPIC)
--- NOTE | 2024-09-22 12:17 | XR_ITS ---
FINAL REPORT CLINICAL HISTORY: soa FINDINGS: CHEST 2 VIEWS PA AND LATERAL There is cardiomegaly with mild pulmonary vascular congestion. The mediastinum is unremarkable. There are mild bibasilar opacities, favor atelectasis. Small effusions are identified. There is no pneumothorax. IMPRESSION: Favor bibasilar atelectasis with small pleural effusions. Reviewed, Interpreted and Dictated by Dixon Rivera III, MD Transcribed by Nicole Diallo Authenticated and [facility]
[2024-09-22 12:22] LABS: Appearance,Urine CLEAR (Clear); Basophils # 0.1 K/mm3 (0-0.2); Basophils % 0.8 % (0.1-2.0); Bilirubin,Urine Negative (Negative); Blood, Urine Negative (Negative); Color,Urine YELLOW (Yellow); Eosinophils % 0.2 % (0.1-12.0); Glucose,Urine (UA) Negative (Negative); Hematocrit 36.7 % (42.0-52.0); Ketones,Urine Negative (Negative); Leukocyte Esterase,Urine Negative (Negative); Lymphocytes # 13.6 K/mm3 (0.7-4.5); Lymphocytes % 73.9 % (10-50); Mean Corpuscular HGB Conc 32.8 g/dL (31.8-35.4); Mean Corpuscular Volume 94.3 fl (80-94); Monocytes # 0.4 K/mm3 (0.1-1.0); Monocytes % 2.3 % (1.7-9.3); Neutrophils # 4.2 K/mm3 (1.8-7.8); Neutrophils % 22.8 % (37.0-80.0); Nitrate,Urine Negative (Negative); Platelet Count 215 K/mm3 (142-424); Protein,Urine Negative (Negative); Red Blood Count 3.89 M/mm3 (4.60-6.20); Red Cell Distribution Width 14.1 % (11.5-17.5); Specific Gravity, Urine 1.025 (1.005-1.030); White Blood Count 18.4 K/mm3 (4.8-10.8)
[2024-09-22 12:24] LABS: MANUAL DIFFERENTIAL MANUAL DIFFERENTIAL (MANUAL DIFF)
[2024-09-22 12:40] LABS: Bacteria,Urine Trace /lpf; WBC,Urine Occasional #/hpf (0-3)
[2024-09-22 13:09] LABS: Lymphocytes % 75 % (10-50); Monocytes % 1 % (2-9); Neutrophils % 24 % (42-76); Platelet Estimate Normal; RBC Morphology Normal; Total Cells Counted 100
[2024-09-22 14:26] LABS: Alanine Aminotransferase 19 U/L (12-78); Albumin Level 4.3 g/dl (3.5-5.0); Albumin/Globulin Ratio 2.5 (1.1-1.8); Alkaline Phosphatase 73 U/L (38-126); Anion Gap 17.3 mEq/L (5-15); Aspartate Amino Transferase 20 U/L (17-59); Bilirubin,Total 0.8 mg/dl (0.2-1.3); Blood Urea Nitrogen 34 mg/dl (9-20); Calcium 8.7 mg/dl (8.4-10.2); Carbon Dioxide 22 mmol/L (22.0-30.0); Chloride 107 mmol/L (98-107); Estimated Glomerular Filt Rate 44 ml/min (>60); GFR (African American) 53 ML/MIN (>60); Globulin 1.7 g/dL (1.3-3.2); Glucose 152 mg/dl (74-100); Potassium 4.3 mmoL/L (3.5-5.1); Sodium 142 mmol/L (136-145)
[2024-09-22 15:50] LABS: NT Pro Brain Natriuretic Pep. 2480 pg/mL (0-450)
[2024-09-22 16:12] LABS: Thyroid Stimulating Hormone 5.15 uIU/mL (0.465-4.68)
== END 2024-09-22 23:59 | disposition home or self-care (01) ==
LOC: LAB 11:58
PROVIDERS: PCP Family Medicine; Visit Provider Family Medicine
DX: R60.0 Localized edema (principal); R06.02 Shortness of breath; N28.9 Disorder of kidney and ureter, unspecified
CPT/HCPCS: 36415; 71046; 80053; 81001; 83880; 84443; 85007; 85025; 85027

== ENCOUNTER 2024-09-30 08:49 | Outpatient (CLI) | payer MEDICARE, SELFPAY ==
--- NOTE | 2024-09-30 08:55 | CA_ITS ---
APPROVED REPORT EXAM: Comprehensive 2D, Doppler, and color-flow Echocardiogram Patient Accounting Representative: Kiersten Palacios CRT Ht: 5 ft 10 in Wt: 203lbs BSA: 2.10 BP: 124/47 mmHg Indications: Mitral Valve Prolapse, Atrial Fibrillation, Peripheral Edema, CAD, Hyperlipidemia, Hypertension/HDD 2D Dimensions LA Volume 139.20 mL LA Volume Index 66.29 mL/m2 (M/F) 16-34 M-Mode Dimensions RVDd 3.05 cm (0.9-2.6) LA Diam 6.03 cm (1.9-4.0) LVDd 5.79 cm (3.5-5.7) LVDs 3.45 cm (3.5-5.7) IVSd 1.41 cm (0.6-1.1) PWd 0.95 cm (0.6-1.1) EF (Teich) 70.40% FS 40.40% EDV (Teich) 165.90 mL TAPSE 1.74 (<1.7) ESV (Teich) 49.10 mL LV Diastology E Decel Time 240 (160-240 msec) E/A Ratio 7.39 MED A' 5.00 cm/s LAT A' 5.10 cm/s Aortic Valve AI PHT 631.00 ms AO Peak GR. 5.90 mmHg Mitral Valve MV A Velocity 16.0 (40-130 cm/s) E/A Ratio 7.39 Pulmonary Valve PV Peak Velocity 217.0 (50-150 cm/s) Tricuspid Valve TR P. Velocity 286.00 cm/s Left Ventricle The left ventricle is normal size. The left ventricular systolic function is normal. The left ventricular ejection fraction is within the normal range. There is increased LV wall thickness. There is normal LV segmental wall motion. Diastolic function is indeterminate. LVEF is 55%. Right Ventricle The right ventricle is moderately dilated. The right ventricular systolic function is normal. Atria The left atrium is severely dilated. The right atrium is severely dilated. There is no Doppler evidence of interatrial shunt. Aortic Valve Aortic valve is mildly thickened. There is no aortic valvular stenosis. Mild aortic regurgitation. Mitral Valve The mitral valve leaflets are mildly thickened. Moderate mitral regurgitation. No evidence of mitral valve stenosis. Tricuspid Valve The tricuspid valve leaflets are thin and pliable. Mild tricuspid regurgitation. RVSP is 30-35 mmHg. Pulmonic Valve The pulmonary valve is normal in structure. Mild pulmonic regurgitation. Great Vessels The aortic root is normal in size. The ascending aorta is normal in size. IVC is normal in size, but collapses < 50% with respirophasic variation. RA pressures estimated at 8 mmHg. Pericardium There is no pericardial effusion. Other Information Study Quality: Fair Conclusion Normal biventricular systolic function. Moderate RV dilation. Severe biatrial dilation. Moderate MR. Mild AI, mild TR, mild PI. RVSP 30-35 mmHg. Electronically signed by : Alisa Reis MD 10/10/2024 23:22:37
[2024-09-30 10:49] LABS: Anion Gap 14.4 mEq/L (5-15); Blood Urea Nitrogen 21 mg/dl (9-20); Calcium 9.5 mg/dl (8.4-10.2); Carbon Dioxide 27 mmol/L (22.0-30.0); Chloride 105 mmol/L (98-107); Estimated Glomerular Filt Rate 52 ml/min (>60); GFR (African American) 63 ML/MIN (>60); Glucose 120 mg/dl (74-100); Potassium 4.4 mmoL/L (3.5-5.1); Sodium 142 mmol/L (136-145)
[2024-09-30 11:08] LABS: Free T4 (Free Thyroxine) 0.97 ng/dl (0.78-2.19)
== END 2024-09-30 23:59 | disposition home or self-care (01) ==
PROVIDERS: Family Medicine; PCP Family Medicine; Visit Provider Internal Medicine
DX: I34.1 Nonrheumatic mitral (valve) prolapse (principal); R07.89 Other chest pain; E78.2 Mixed hyperlipidemia; I48.0 Paroxysmal atrial fibrillation; Z95.5 Presence of coronary angioplasty implant and graft; I25.118 Atherosclerotic heart disease of native coronary artery with other forms of angina pectoris; R06.00 Dyspnea, unspecified; R94.6 Abnormal results of thyroid function studies; N28.9 Disorder of kidney and ureter, unspecified
CPT/HCPCS: 36415; 80048; 84439; 93306